=== PATIENT | male | born 1945 | race Caucasian/White ===

== ENCOUNTER 2021-12-13 10:40 | Outpatient (CLI) | payer MEDICARE, OTHER, SELFPAY ==
--- NOTE | 2021-12-13 11:00 | CRLHL7_ITS ---
For Patients: As a result of the Century Cures Act, medical imaging exams and procedure reports are released immediately into your electronic medical record. You may view this report before your referring provider. If you have questions, please contact your health care provider. INDICATION: LEFT NECK STIFFNESS AND PAIN COMPARISON: MRA neck 10/09/2017 TECHNIQUE: The carotid circulations and the vertebral arteries in the neck were examined with melchor-scale ultrasound, color-flow and Doppler spectral analysis. Degrees of stenosis were determined using SRU 2002 Consensus Panel Criteria. FINDINGS: Sonographic images demonstrate mild bilateral atherosclerotic plaque formation without suspicious soft tissue mass. The spectral Doppler tracings of the common carotid, internal and external carotid arteries demonstrate no abnormal turbulence or spectral broadening. There was no significant elevation of peak systolic blood flow which would indicate a hemodynamically significant stenosis by NASCET criteria. The ICA/CCA peak systolic velocity ratio measures 1.6 on the right and 1.1 on the left. There was antegrade blood flow demonstrated within the vertebral arteries. IMPRESSION: Less than 50 percent stenosis of the internal carotid arteries bilaterally. Dictated by Tani Bronson MD @ 12/13/2021 11:54:52 AM (Electronically Signed)
== END 2021-12-13 10:41 | disposition home or self-care (01) ==
LOC: US 10:41
PROVIDERS: PCP Student in an Organized Health Care Education/Training Program; Visit Provider Student in an Organized Health Care Education/Training Program
DX: M54.2 Cervicalgia (principal); M43.6 Torticollis; I65.23 Occlusion and stenosis of bilateral carotid arteries
CPT/HCPCS: 93880